=== PATIENT | male | born 1965 | race Caucasian/White ===

== ENCOUNTER 2017-02-24 13:56 | Emergency (ER) | payer BC ==
--- NOTE | 2017-02-24 14:29 | Emergency Department Record ---
History of Present Illness - General Chief Complaint: Shortness of breath Stated Complaint: JESUS Time Seen by Provider: 02/24/17 14:19 Source: Patient, RN notes reviewed Mode of Arrival: Ambulatory - History of Present Illness Initial Comments: SOB and this happened on and off for 2 weeks and wednesday 2 days ago seen [facility] and did cardiac workup and he was discharged to follow up with his PCP and today he called his primary and NITA again and told to go to ED. 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 MD Complaint: Shortness of breath Onset/Timin -: Days(s) Worsens With: Nothing Associated Symptoms: Chest pain, Palpitations - Related Data Home Oxygen Therapy: No Home Medications Medication Instructions Recorded Confirmed Last Taken Fluoxetine HCl [Prozac] 20 mg PO DAILY 02/24/17 02/24/17 Unknown Allergies Allergy/AdvReac Type Severity Reaction Status Date / Time No Known Drug Allergies Allergy Verified 02/24/17 14:07 Travel Screening - Travel/Exposure Within Last 30 Days Have you traveled within the last 30 days?: No Review of Systems Reviewed: No additional complaints except as noted below Constitutional: Reports: As per HPI. Denies: Chills, Fever, Malaise, Night sweats, Weakness, Weight change Eyes: Reports: As per HPI. Denies: Eye discharge, Eye pain, Photophobia, Vision change ENT: Reports: As per HPI. Denies: Congestion, Dental pain, Ear pain, Epistaxis , Hearing loss, Throat pain Respiratory: Reports: As per HPI, Cough, Dyspnea. Denies: Hemoptysis, Stridor, Wheezes Cardiovascular: Reports: As per HPI, Chest pain, Dyspnea on exertion. Denies: Arrhythmia, Edema, Murmurs, Orthopnea, Palpitations, Paroxysmal nocturnal dyspnea, Rheumatic Fever, Syncope Endocrine: Reports: As per HPI. Denies: Fatigue, Heat or cold intolerance, Polydipsia, Polyuria Gastrointestinal: Reports: As per HPI. Denies: Abdominal pain, Constipation, Diarrhea, Hematemesis, Hematochezia, Melena, Nausea, Vomiting Genitourinary: Reports: As per HPI. Denies: Dysuria, Frequency, Hematuria, Incontinence, Retention, Testicular pain, Testicular mass, Urgency Musculoskeletal: Reports: As per HPI. Denies: Arthralgia, Back pain, Gout, Joint swelling, Myalgia, Neck pain Skin: Reports: As per HPI. Denies: Bruising, Change in color, Change in hair/ nails, Lesions, Pruritus, Rash Neurological: Reports: As per HPI. Denies: Abnormal gait, Confusion, Headache, Numbness, Paresthesias, Seizure, Tingling, Tremors, Vertigo, Weakness Psychiatric: Reports: As per HPI. Denies: Anxiety, Auditory hallucinations, Depression, Homicidal thoughts, Suicidal thoughts, Visual hallucinations Hematological/Lymphatic: Reports: As per HPI. Denies: Anemia, Blood Clots, Easy bleeding, Easy bruising, Swollen glands Past Medical History - SOCIAL HISTORY Smoking Status: Former smoker Alcohol Use: None Drug Use: None - RESPIRATORY Hx Respiratory Disorders: No - CARDIOVASCULAR Hx Cardio Disorders: Yes Hx Abnormal EKG: Yes - NEURO Hx Neuro Disorders: No - GI Hx GI Disorders: Yes Hx Reflux: Yes - Hx Genitourinary Disorders: No - ENDOCRINE Hx Endocrine Disorders: No - MUSCULOSKELETAL Hx Musculoskeletal Disorders: Yes Hx Arthritis: Yes - PSYCH Hx Psych Problems: Yes Hx Anxiety: Yes Hx Depression: Yes - HEMATOLOGY/ONCOLOGY Hx Hematology/Oncology Disorders: No Family Medical History Any Significant Family History?: Yes Hx Alcohol Use: Father Hx Heart Disease: Father, Brother/Sister, Grandparents Physical Exam - General General Appearance: Alert, Oriented x3, Cooperative, No acute distress - Head Head exam: Normal inspection - Eye Eye exam: Normal appearance, PERRL Pupils: Normal accommodation - ENT ENT exam: Normal exam, Mucous membranes moist, Normal external ear exam, Normal orophraynx, TM's normal bilaterally Ear exam: Normal external inspection. negative: External canal tenderness Nasal Exam: Normal inspection. negative: Discharge, Sinus tenderness Mouth exam: Normal external inspection, Tongue normal Teeth exam: Normal inspection. negative: Dental caries Throat exam: Normal inspection. negative: Tonsillar erythema, Tonsillar exudate - Neck Neck exam: Normal inspection, Full ROM. negative: Tenderness - Respiratory Respiratory exam: Normal lung sounds bilaterally. negative: Respiratory distress - Cardiovascular Cardiovascular Exam: Regular rate, Normal rhythm, Normal heart sounds - GI/Abdominal GI/Abdominal exam: Soft, Normal bowel sounds. negative: Tenderness - Rectal Rectal exam: Deferred - exam: Deferred - Extremities Extremities exam: Normal inspection, Full ROM, Normal capillary refill. negative: Tenderness - Back Back exam: Reports: Normal inspection, Full ROM. Denies: Muscle spasm, Rash noted, Tenderness - Neurological Neurological exam: Alert, Normal gait, Oriented X3, Reflexes normal - Psychiatric Psychiatric exam: Normal affect, Normal mood - Skin Skin exam: Dry, Intact, Normal color, Warm Course Vital Signs 02/24/17 14:02 Temperature 98.0 F Pulse Rate 66 Respiratory 18 Rate Blood Pressure 133/96 Pulse Ox 99 patient said the dyspnea went away upon arrival to ED - Reevaluation(s) Reevaluation #1: discussed finding with patient and relative, cardiac enzymes neg and d dimer negative and since we are unable to do a stress test till wednesday here they want to go to [facility] for a complete cardiac workup. 02/24/17 15:40 Reevaluation #2: discussed case with Dr. Braun and he except the transfer. 02/24/17 15:47 Medical Decision Making - Data Complexity MDM Data: Labs Ordered and/or Reviewed, X-Ray Ordered and/or Reviewed (chest xray neg), EKG Ordered and/or Reviewed (nsr, no acute changes) - Lab Data Result diagrams: 02/24/17 14:15 02/24/17 14:15 Disposition Clinical Impression: Unstable angina, Dyspnea on exertion Chest pain Qualifiers: Chest pain type: chest pain due to myocardial ischemia Ischemic chest pain type : unstable angina pectoris Qualified Code(s): I20.0 - Unstable angina Disposition: Acute Care Hospital Transfer Condition: (2) Stable Forms: Patient Portal Access Time of Disposition: 15:50 Quality - Quality Measures Quality Measures: N/A - Blood Pressure Screening Does Patient Have Any of the Following: No Blood Pressure Classification: Hypertensive Reading Systolic Measurement: 133 Diastolic Measurement: 96 Screening for High Blood Pressure: < First Hypertensive BP, F/U Documented > [ G8950] First Hypertensive Follow-up Interventions: Referral to alternative/primary care provider.
[2017-02-24 14:39] LABS: BASO % 0.9 % (0-6); EOS % 2.4 % (0-6); GRAN % 55.9 % (47-80); HEMATOCRIT 43.1 % (42.0-52.0); HEMOGLOBIN 15.7 gm/dl (14.0-18.0); LYMPH % 29.5 % (16-45); MEAN CELL VOLUME 82.3 fl (81-97); MEAN CORPUSCULAR HGB CONC 36.4 g/dl (32-36); MEAN PLATELET VOLUME 9.7 fl (7.4-10.4); MONO % 11.3 % (0-9); PLATELET COUNT 263 K/uL (130-400); RED BLOOD COUNT 5.24 M/uL (4.40-5.70); RED CELL DISTRIBUTION WIDTH 12.2 % (11.5-14.5); WHITE BLOOD COUNT W/O DIFF 5.8 K/uL (4.2-12.2)
[2017-02-24] MEDS: ASPIRIN 81 MG CHEWABLE TABLET PO ONE (15:11)
[2017-02-24 15:23] LABS: BLOOD UREA NITROGEN 11 mg/dL (6-20); CKMB < 1.0 ng/mL (<6.73); CREATININE 1.1 mg/dL (0.7-1.2); EST GLOMERULAR FILTRATION RATE > 60 mL/min; GLUCOSE,RANDOM 97 mg/dL (74-109)
--- NOTE | 2017-02-25 15:12 | RADIOLOGY REPORT ---
EXAM: CHEST, TWO VIEWS HISTORY: NONPRODUCTIVE COUGH, GENERALIZED CHEST PAIN FOR THREE DAY. TECHNIQUE: Two views of the chest were obtained. Comparison: None. FINDINGS: The lungs are clear. The cardiac silhouette, diaphragm, and osseous structures are unremarkable for age. IMPRESSION: NEGATIVE CHEST EXAMINATION. JOB NUMBER: [id number] MTDD
== END 2017-02-24 17:06 | disposition short-term general hospital (02) ==
LOC: ER 13:56
DX: I20.0 Unstable angina (principal); R06.09 Other forms of dyspnea; R42 Dizziness and giddiness; Z87.891 Personal history of nicotine dependence
CPT/HCPCS: 71020; 80048; 82553; 84484; 85025; 85379; 85730; 99285

== ENCOUNTER 2019-03-25 05:04 | Emergency (ER) | payer BC ==
[2019-03-25 05:22] LABS: URINE APPEARANCE CLEAR; URINE BILIRUBIN NEGATIVE (NEGATIVE); URINE BLOOD NEGATIVE (NEGATIVE); URINE COLOR YELLOW; URINE GLUCOSE (UA) NEGATIVE (NEGATIVE); URINE KETONE NEGATIVE (NEGATIVE); URINE LEUKOCYTE ESTERASE NEGATIVE (NEGATIVE); URINE NITRITE NEGATIVE (NEGATIVE); URINE PROTEIN NEGATIVE (NEGATIVE); URINE UROBILINOGEN 0.2 E.U./dL (0.20 - 1.00)
[2019-03-25] MEDS ORDERED: KETOROLAC 30 MG/ML VIAL IVP ONE (05:28)
[2019-03-25] MEDS ORDERED: 0.9 % SODIUM CHLORIDE 1,000 ML BAG IV ONE (05:28)
[2019-03-25] MEDS ORDERED: ONDANSETRON HCL IV 4 MG/2 ML VIAL IV ONE (05:28)
[2019-03-25 05:42] LABS: ABSOLUTE NEUTROPHIL COUNT 5.37; RED BLOOD COUNT 5.65 M/uL (4.40-5.70); WHITE BLOOD COUNT W/O DIFF 8.8 K/uL (4.2-12.2)
[2019-03-25 05:43] LABS: BASO % 0.6 % (0-6); GRAN % 61.1 % (47-80); HEMATOCRIT 46.9 % (42.0-52.0); HEMOGLOBIN 16.2 gm/dl (14.0-18.0); LYMPH % 25.4 % (16-45); MEAN CORPUSCULAR HEMOGLOBIN 28.7 pg (27-33); MEAN CORPUSCULAR HGB CONC 34.5 g/dl (32-36); MEAN PLATELET VOLUME 9.7 fl (7.4-10.4); MONO % 10.9 % (0-9); PLATELET COUNT 245 K/uL (130-400); RED CELL DISTRIBUTION WIDTH 12.8 % (11.5-14.5)
[2019-03-25 05:50] LABS: BLOOD UREA NITROGEN 12 mg/dL (6-20)
[2019-03-25 05:51] LABS: CREATININE 1.3 mg/dL (0.7-1.2); EST GLOMERULAR FILTRATION RATE > 60 mL/min; LIPASE 49 U/L (13-60); TOTAL PROTEIN 7.5 g/dL (6.6-8.7)
[2019-03-25 05:53] LABS: GLUCOSE,RANDOM 109 mg/dL (74-109)
[2019-03-25 05:56] LABS: ALB/GLOB RATIO 1.7 (1.1-1.8); ALBUMIN 4.7 g/dL (4.0-5.0); ALKALINE PHOSPHATASE 121 U/L (40-129); ALT/SGPT 25 U/L (<41); AST/SGOT 20 U/L (10.0-50.0)
--- NOTE | 2019-03-25 05:56 | Emergency Department Record ---
History of Present Illness - General Chief complaint: Flank Pain Stated complaint: BILATERAL KIDNEY PAIN Time Seen by Provider: 03/25/19 05:24 Source: Patient Mode of Arrival: Ambulatory Limitations: No limitations - History of Present Illness Initial comments: pt has had flank pain intermittently for 2 wks which became constant 7hrs ago. it has gradually gotten worse. he has nausea. he had a kidney infection at age 17 but has never had any thing like this. MD Complaint: Other -: Hour(s) Location: Left flank, Right flank Radiation: Back Severity: Severe Severity scale (1-10): 10 Quality: Sharp, Stabbing Consistency: Intermittent, Getting worse Improves with: None Worsens with: None Other - Related Data Sexually active: Yes Home Medications Medication Instructions Recorded Confirmed Last Taken Sertraline HCl [Zoloft] 100 mg PO DAILY 03/25/19 03/25/19 03/24/19 Allergies Allergy/AdvReac Type Severity Reaction Status Date / Time No Known Drug Allergies Allergy Verified 02/24/17 14:07 Travel Screening - Travel/Exposure Within Last 30 Days Have you traveled within the last 30 days?: No - Travel Symptoms Symptom Screening: None Review of Systems Reviewed: No additional complaints except as noted below Constitutional: Reports: As per HPI. Denies: Chills, Fever, Malaise, Night sweats, Weakness, Weight change Eyes: Reports: As per HPI. Denies: Eye discharge, Eye pain, Photophobia, Vision change ENT: Reports: As per HPI. Denies: Congestion, Dental pain, Ear pain, Epistaxis, Hearing loss, Throat pain Respiratory: Reports: As per HPI. Denies: Cough, Dyspnea, Hemoptysis, Stridor, Wheezes Cardiovascular: Reports: As per HPI. Denies: Arrhythmia, Chest pain, Dyspnea on exertion, Edema, Murmurs, Orthopnea, Palpitations, Paroxysmal nocturnal dyspnea, Rheumatic Fever, Syncope Endocrine: Reports: As per HPI. Denies: Fatigue, Heat or cold intolerance, Polydipsia, Polyuria Gastrointestinal: Reports: As per HPI. Denies: Abdominal pain, Constipation, D iarrhea, Hematemesis, Hematochezia, Melena, Nausea, Vomiting Genitourinary: Reports: As per HPI. Denies: Dysuria, Frequency, Hematuria, Incontinence, Retention, Testicular pain, Testicular mass, Urgency Musculoskeletal: Reports: As per HPI. Denies: Arthralgia, Back pain, Gout, Joint swelling, Myalgia, Neck pain Skin: Reports: As per HPI. Denies: Bruising, Change in color, Change in hair/nails, Lesions, Pruritus, Rash Neurological: Reports: As per HPI. Denies: Abnormal gait, Confusion, Headache, Numbness, Paresthesias, Seizure, Tingling, Tremors, Vertigo, Weakness Psychiatric: Reports: As per HPI. Denies: Anxiety, Auditory hallucinations, Depression, Homicidal thoughts, Suicidal thoughts, Visual hallucinations Hematological/Lymphatic: Reports: As per HPI. Denies: Anemia, Blood Clots, Easy bleeding, Easy bruising, Swollen glands Past Medical History - SOCIAL HISTORY Smoking Status: Former smoker Alcohol Use: None Drug Use: None - RESPIRATORY Hx Respiratory Disorders: No - CARDIOVASCULAR Hx Cardio Disorders: Yes Hx Abnormal EKG: Yes - NEURO Hx Neuro Disorders: No - GI Hx GI Disorders: Yes Hx Reflux: Yes - Hx Genitourinary Disorders: No - ENDOCRINE Hx Endocrine Disorders: No - MUSCULOSKELETAL Hx Musculoskeletal Disorders: Yes Hx Arthritis: Yes - PSYCH Hx Psych Problems: Yes Hx Anxiety: Yes Hx Depression: Yes - HEMATOLOGY/ONCOLOGY Hx Hematology/Oncology Disorders: No Family Medical History Any Significant Family History?: Yes Hx Alcohol Use: Father Hx Heart Disease: Father, Brother/Sister, Grandparents Physical Exam - General General Appearance: Alert, Oriented x3, Cooperative, Mild distress - Head Head exam: Normal inspection - Eye Eye exam: Normal appearance, PERRL, EOMI Pupils: Normal accommodation - ENT ENT exam: Normal exam, Mucous membranes moist, Normal external ear exam, Normal orophraynx Ear exam: Normal external inspection. negative: External canal tenderness Nasal Exam: Normal inspection. negative: Discharge, Sinus tenderness Mouth exam: Normal external inspection, Tongue normal Teeth exam: Normal inspection. negative: Dental caries Throat exam: Normal inspection. negative: Tonsillar erythema, Tonsillar exudate - Neck Neck exam: Normal inspection, Full ROM. negative: Tenderness - Respiratory Respiratory exam: Normal lung sounds bilaterally. negative: Respiratory distress - Cardiovascular Cardiovascular Exam: Regular rate, Normal rhythm, Normal heart sounds - GI/Abdominal GI/Abdominal exam: Soft, Normal bowel sounds, Tenderness - Rectal Rectal exam: Deferred - exam: Deferred - Extremities Extremities exam: Normal inspection, Full ROM, Normal capillary refill. negative: Tenderness - Back Back exam: Reports: CVA tenderness (R), CVA tenderness (L), Full ROM. Denies: Muscle spasm, Rash noted, Tenderness - Neurological Neurological exam: Alert, CN II-XII intact, Normal gait, Oriented X3 - Psychiatric Psychiatric exam: Normal affect, Normal mood - Skin Skin exam: Dry, Intact, Normal color, Warm Course Vital Signs 03/25/19 05:07 Temperature 97.8 F Pulse Rate 68 Respiratory 24 Rate Blood Pressure 152/94 Pulse Ox 97 f - Reevaluation(s) Reevaluation #1: 03/25/19 07:07 pt feels better. pain is gone. ct shows tiny stone by bladder and az lithiasis. recheck pt has no ruq pain and previous pain is gone Medical Decision Making - Lab Data Result diagrams: 03/25/19 05:28 03/25/19 05:28 Lab Results 03/25/19 03/25/19 Range/Units 05:00 05:28 WBC 8.8 (4.2-12.2) K/uL RBC 5.65 (4.40-5.70) M/uL Hgb 16.2 (14.0-18.0) gm/dl Hct 46.9 (42.0-52.0) % MCV 83.0 (81-97) fl MCH 28.7 (27-33) pg MCHC 34.5 (32-36) g/dl RDW 12.8 (11.5-14.5) % Plt Count 245 (130-400) K/uL MPV 9.7 (7.4-10.4) fl Gran % 61.1 (47-80) % Lymphocytes % 25.4 (16-45) % Monocytes % 10.9 H (0-9) % Eosinophils % 2.0 (0-6) % Basophils % 0.6 (0-6) % Absolute Neutrophils 5.37 Urine Color Yellow Urine Appearance Clear Urine pH 7.0 (5.0-8.0) Ur Specific [place] 1.015 (1.002-1.030) Urine Protein Negative (NEGATIVE) Urine Glucose (UA) Negative (NEGATIVE) Urine Ketones Negative (NEGATIVE) Urine Blood Negative (NEGATIVE) Urine Nitrite Negative (NEGATIVE) Urine Bilirubin Negative (NEGATIVE) Urine Urobilinogen 0.2 (0.20 - 1.00) E.U./dL Ur Leukocyte Esterase Negative (NEGATIVE) Disposition Disposition: Discharge Clinical Impression: Renal colic, bilateral Cholelithiasis Qualifiers: Cholelithiasis location: gallbladder Cholecystitis presence: without cholecystitis Biliary obstruction: without biliary obstruction Qualified Code(s): K80.20 - Calculus of gallbladder without cholecystitis without obstruction Disposition: Home, Self-Care Condition: (1) Good Instructions: Renal Colic (ED), Gallstones (ED) Additional Instructions: follow up with family doctor. return sooner if worse. have ultrasound of gallbladder if pain returns. low fat diet Forms: Patient Portal Access Quality - Quality Measures Quality Measures: N/A - Blood Pressure Screening Does Patient Have Any of the Following: No Blood Pressure Classification: Hypertensive Reading Systolic Measurement: 152 Diastolic Measurement: 94 Screening for High Blood Pressure: < First Hypertensive BP, F/U Documented > [G8950] First Hypertensive Follow-up Interventions: Follow-up with rescreen GT 1 day and LT 4 weeks.
--- NOTE | 2019-03-25 06:56 | CT SCAN REPORT ---
EXAMINATION: CT Abdomen and Pelvis without IV Contrast EXAM DATE: 03/25/2019 6:16 AM TECHNIQUE: Standard protocol CT imaging of the abdomen and pelvis was performed without intravenous c ontrast. INDICATION: Flank pain for several weeks more remarkable today. COMPARISON: None CT ABDOMEN AND PELVIS FINDINGS: Lung Bases: Scans through the lung bases demonstrate findings compatible with atelectasis or scarring . There are no pleural or pericardial effusions. Hepatobiliary: There is a 7 mm low-attenuation finding adjacent to the intersegmental fissure which m ay reflect a small hepatic cyst or other statistically most probably benign finding. Additional simil ar findings may be present. These may be further characterized with nonemergent ultrasound. There are multiple stones within the gallbladder without biliary dilatation. Pancreas: The pancreas is normal. Spleen: The spleen is near the upper limits of normal for size without acute abnormality seen. There is an associated developmental splenule. Adrenals: The adrenal glands are normal. Kidneys, Ureters, & Bladder: There are no radiopaque renal or ureteral stones however tiny stone post eriorly within the urinary bladder adjacent to the left UVJ may be present. The kidneys have a normal noncontrast appearance. The bladder otherwise appears normal. Gastrointestinal: There is colonic diverticulosis without CT findings of acute diverticulitis. The ap pendix is normal. The small bowel appears normal. The stomach as visualized appears normal although t here may be a small hiatal hernia. Reproductive Organs: There is no free pelvic fluid or pelvic mass. The prostate is prominent in size. Lymphatic System: There is no mesenteric, retroperitoneal or pelvic lymphadenopathy. Vasculature: Normal caliber abdominal aorta Peritoneum: There is no abdominal free air or significant abdominal fluid. Abdominal wall & Musculoskeletal: No acute abdominal wall abnormality is seen. Posteriorly on the rig ht in the subcutaneous soft tissues there are findings which may represent a sebaceous cyst measuring approximately 2.2 cm and perhaps a subcentimeter cutaneous mole or other skin lesion. Images at bone window demonstrate degenerative features. Assessment of the solid organs, soft tissues, and vascular structures is overall limited on noncontra st imaging, IMPRESSION: No radiopaque renal or ureteral stones and no obstructive uropathy. Tiny bladder stone adjacent to the left UVJ may be present. No acute bowel abnormality is seen and the appendix appears normal. Cholelithiasis. Question small hiatal hernia. Potential hepatic cysts and attempted characterization with nonemergent ultrasound would be beneficia l. Additional comments as above. Dictated by: Jeronimo Reese MD on 03/25/2019 6:41 AM. .
== END 2019-03-25 07:22 | disposition home or self-care (01) ==
LOC: ER 05:04
DX: K80.20 Calculus of gallbladder without cholecystitis without obstruction (principal); R11.0 Nausea; F17.210 Nicotine dependence, cigarettes, uncomplicated
CPT/HCPCS: 99284 ×2; 96374; 96375; 83690; 85025; 80053; 81003; 74176; J1885; J2405; J7030